=== PATIENT | female | born 1995 | race Caucasian/White ===

== ENCOUNTER 2021-09-09 22:09 | Inpatient (IN) | payer OTHER ==
[~2021-09-09] VITALS: Ht 172.7 cm; Wt 104.3 kg
[2021-09-09 23:00] VITALS: BP 123/66
[2021-09-09] MEDS ORDERED: OXYTOCIN 20 UNITS in LACTATED RINGERS 1,000 ML IV SCH (23:50)
[2021-09-09] MEDS ORDERED: MISOPROSTOL 25 MCG TAB VG SCH (23:50)
[2021-09-10] MEDS: LACTATED RINGERS 500 ML IV SCH ×7 (01:17→21:35)
[2021-09-10 01:31] LABS: BASOPHILS % (AUTO) 0.4 % (0.0-2.0); EOSINOPHILS % (AUTO) 0.3 % (0.0-4.0); HEMATOCRIT 39.3 % (36-48); HEMOGLOBIN 13.4 g/dL (12.0-16.0); LYMPHOCYTES # (AUTO) 1.6 K/uL (2.5-16.5); MEAN CORPUSCULAR HEMOGLOBIN 29 pg (27-31); MEAN CORPUSCULAR HGB CONC 34 g/dL (33-37); MEAN CORPUSCULAR VOLUME 84.5 fL (80-94); MONOCYTES # (AUTO) 0.6 K/uL (0.8-1.0); MONOCYTES % (AUTO) 8.1 % (1.7-9.3); NEUTROPHILS # (AUTO) 4.6 K/uL (1.8-7.7); NEUTROPHILS % (AUTO) 67.2 % (42.2-75.2); PLATELET COUNT (AUTO) 320 K/uL (140-450); RED BLOOD CELL COUNT(AUTO) 4.65 MIL/uL (4.20-5.40); RED CELL DISTRIBUTION WIDTH 15.5 % (11.6-13.7); WHITE BLOOD COUNT (AUTO) 6.8 K/uL (4.8-10.8)
[2021-09-10 01:31] LABS: APPEARANCE,URINE CLEAR (CLEAR); BILIRUBIN,URINE NEGATIVE (NEGATIVE); BLOOD, URINE NEGATIVE (NEGATIVE); COLOR,URINE YELLOW (YELLOW); LEUKOCYTE ESTERASE ,URINE NEGATIVE (NEGATIVE); NITRITE, URINE NEGATIVE (NEGATIVE); PH,URINE 6.5 (5.0-9.0); UGLUCOSE NEGATIVE (NEGATIVE)
[2021-09-10 01:48] LABS: ALBUMIN 2.6 g/dL (3.4-5.0); ANION GAP 15.6 (8-16); CARBON DIOXIDE 21.1 mmol/L (21-32); CREATININE 0.6 mg/dL (0.6-1.3); POTASSIUM 3.7 mmol/L (3.5-5.1); TOTAL BILIRUBIN 0.2 mg/dL (0.0-1.0)
[2021-09-10] MEDS ORDERED: MISOPROSTOL 25 MCG TAB VG SCH (07:30)
[2021-09-10] MEDS ORDERED: OXYTOCIN 20 UNITS/LR PREMIX 1,000 ML IV ONE (11:08)
[2021-09-10] MEDS ORDERED: PRETAB PO (14:07)
[2021-09-10] MEDS ORDERED: AMPICILLIN 2,000 MG in NACL 0.9% 100 ML IV ONE (16:15)
[2021-09-10] MEDS ORDERED: AMPICILLIN 2,000 MG VIAL ONE (16:17)
[2021-09-10] MEDS ORDERED: AMPICILLIN 1,000 MG VIAL ONE (20:10)
[2021-09-10] MEDS: AMPICILLIN 1,000 MG in NACL 0.9% 50 ML IV SCH (20:18)
[2021-09-10] MEDS ORDERED: bisacodyL 5 MG TABEC PO PRN (20:35)
[2021-09-10] MEDS ORDERED: ONDANSETRON 4 MG/2 ML VIAL IVP PRN (23:25)
[2021-09-10] MEDS ORDERED: MORPHINE SULFATE 5 MG/ML VIAL IVP PRN (23:25)
[2021-09-10] MEDS ORDERED: ONDANSETRON 4 MG/2 ML VIAL ONE (23:25)
[2021-09-10] MEDS ORDERED: MORPHINE SULFATE 10 MG/ML VIAL ONE (23:25)
[2021-09-10 23:35] VITALS: BP 138/81
[2021-09-11] MEDS ORDERED: AMPICILLIN 1,000 MG VIAL ONE (00:19)
[2021-09-11] MEDS: AMPICILLIN 1,000 MG in NACL 0.9% 50 ML IV SCH (00:22)
[2021-09-11] MEDS ORDERED: ROPIVACAINE 0.2%/NS PREMIX 200 ML EPI ONE ×2 (01:05→15:10)
[2021-09-11] MEDS: LACTATED RINGERS 500 ML IV SCH (01:35)
[2021-09-11] MEDS ORDERED: MORPHINE SULFATE 10 MG/ML VIAL ONE (02:43)
[2021-09-11] MEDS ORDERED: NALOXONE 0.4 MG/ML VIAL ONE (02:48)
[2021-09-11] MEDS ORDERED: METHYLERGONOVINE 0.2 MG/ML AMP ONE (03:42)
[2021-09-11] MEDS ORDERED: LIDOCAINE 1% 500 MG/50 ML VIAL ONE (04:03)
[2021-09-11] MEDS ORDERED: BENZOCAINE/MENTHOL 20%-0.5% 60 GM CAN TP PRN (04:25)
[2021-09-11] MEDS ORDERED: METHYLERGONOVINE 0.2 MG/ML AMP IM PRN ×2 (04:25→18:45)
[2021-09-11] MEDS ORDERED: IBUPROFEN 600 MG TAB PO PRN (04:25)
[2021-09-11] MEDS ORDERED: METHYLERGONOVINE 0.2 MG TAB PO PRN (04:25)
[2021-09-11] MEDS ORDERED: OXYTOCIN 10 UNITS/ML VIAL IM PRN (04:25)
[2021-09-11] MEDS ORDERED: IBUPROFEN 800 MG TAB PO PRN (04:25)
[2021-09-11] MEDS ORDERED: HYDROcodone/APAP 5/325 MG 1 TAB TAB PO PRN ×2 (04:25)
[2021-09-11] MEDS ORDERED: MEASLES, MUMPS, AND RUBELLA 1 VIAL SQVAC ONE (04:25)
[2021-09-11] MEDS ORDERED: DOCUSATE SODIUM 100 MG GELCAP PO PRN (04:25)
[2021-09-11] MEDS ORDERED: bisacodyL 5 MG TABEC PO PRN (04:25)
[2021-09-11] MEDS ORDERED: SIMETHICONE 80 MG TAB.CHEW PO PRN (04:25)
[2021-09-11] MEDS ORDERED: OXYTOCIN 20 UNITS/LR PREMIX 1,000 ML IV ONE (05:35)
[2021-09-11 06:51] LABS: BASOPHILS % (AUTO) 0.1 % (0.0-2.0); HEMATOCRIT 35.6 % (36-48); HEMOGLOBIN 11.8 g/dL (12.0-16.0); LYMPHOCYTES # (AUTO) 0.9 K/uL (2.5-16.5); LYMPHOCYTES % (AUTO) 5.7 % (20.5-51.1); MEAN CORPUSCULAR HEMOGLOBIN 28 pg (27-31); MEAN CORPUSCULAR HGB CONC 33 g/dL (33-37); MEAN CORPUSCULAR VOLUME 85.5 fL (80-94); MONOCYTES # (AUTO) 0.6 K/uL (0.8-1.0); NEUTROPHILS # (AUTO) 13.9 K/uL (1.8-7.7); NEUTROPHILS % (AUTO) 90.2 % (42.2-75.2); PLATELET COUNT (AUTO) 330 K/uL (140-450); RED BLOOD CELL COUNT(AUTO) 4.16 MIL/uL (4.20-5.40); RED CELL DISTRIBUTION WIDTH 15.4 % (11.6-13.7); WHITE BLOOD COUNT (AUTO) 15.4 K/uL (4.8-10.8)
[2021-09-11] MEDS ORDERED: oxyCODONE/APAP 5/325 MG 1 TAB TAB ONE (07:27)
--- NOTE | 2021-09-11 09:36 | NUR ---
PATIENT HAS BEEN SCREENED AND CATEGORIZED LOW NUTRITION RISK. PATIENT WILL BE SEEN WITHIN 7 DAYS OF ADMISSION. 09/16/[address]
[2021-09-11] MEDS ORDERED: ONDANSETRON 4 MG/2 ML VIAL IVP PRN (18:45)
[2021-09-11] MEDS ORDERED: LACTATED RINGERS 1,000 ML IV SCH (18:45)
[2021-09-11] MEDS ORDERED: OXYTOCIN 20 UNITS in LACTATED RINGERS 1,000 ML IV SCH (18:45)
[2021-09-11] MEDS ORDERED: MORPHINE SULFATE 5 MG/ML VIAL IVP PRN (18:45)
[2021-09-12 09:38] LABS: HEMOGLOBIN 8.8 g/dL (12.0-16.0)
[2021-09-12] MEDS ORDERED: IRON SUCROSE COMPLEX 100 MG/5 ML VIAL IVP SCH (15:30)
[2021-09-12] MEDS ORDERED: IBUPROFEN 400 MG TAB PO PRN (15:55)
== END 2021-09-13 12:15 | disposition home or self-care (01) | DRG 560 ==
LOC: MLD 22:09 → MFCC 09-11 08:10
PROVIDERS: ADMIT Obstetrics & Gynecology; ATTEND Obstetrics & Gynecology
PROC: 10E0XZZ Delivery of Products of Conception, External Approach (ICD-10-PCS; principal; 2021-09-11)
PROC: 0KQM0ZZ Repair Perineum Muscle, Open Approach (ICD-10-PCS; 2021-09-11)
PROC: 3E033VJ Introduction of Other Hormone into Peripheral Vein, Percutaneous Approach (ICD-10-PCS; 2021-09-11)
DX: O62.2 Other uterine inertia (principal); Z37.0 Single live birth; D62 Acute posthemorrhagic anemia; D50.9 Iron deficiency anemia, unspecified; O99.02 Anemia complicating childbirth; O70.1 Second degree perineal laceration during delivery; Z20.822 Contact with and (suspected) exposure to COVID-19; Z83.3 Family history of diabetes mellitus; Z3A.39 39 weeks gestation of pregnancy
CPT/HCPCS: 36415; 59200; 59409; 76815; 80053; 81003; 85018; 85025; 85730; 86592; 86886; 86900; 86901; 86920; 90715; 93970; J0290; J1756; J2001; J2210; J2270; J2310; J2405; J2590; Q0092